=== PATIENT | male | born 1940 | race Caucasian/White ===

== ENCOUNTER 2017-01-31 08:26 | Inpatient (IN) ==
[2017-01-31 09:29] LABS: BASO% 0.2 % (0.0-0.8); EOS# 0.01 X1000 (0.0-0.7); EOS% 0.1 % (0.0-10.0); HEMATOCRIT 40.5 % (42.0-52.0); HEMOGLOBIN 13.1 g/dL (14.0-18.0); IMM GRAN# 0.11 X1000 (0.0-0.04); IMM GRAN% 0.7 % (0.0-0.5); LYMPH# 0.34 X1000 (1.2-3.4); LYMPH% 2.2 % (20.5-51.1); MANUAL DIFF NEEDED? NO; MCH 29.7 PG (27-31); MCHC 32.3 g/dL (33-37); MCV 91.8 FL (81-99); MONO# 0.94 X1000 (0.11-0.59); MONO% 6.1 % (1.7-9.3); MPV 9.4 FL (7.4-10.4); NEUT% 90.7 % (42.2-75.2); PLT 152 X1000 (130-400); RBC 4.41 XMIL (4.7-6.1)
[2017-01-31 09:48] LABS: AGAP 15; ALBUMIN 3.7 g/dL (3.5-5.0); ALKALINE PHOSPHATASE 138 U/L (32-122); BUN 14 mg/dL (8-22); CALCIUM 9.1 mg/dL (8.8-10.2); CHLORIDE 95 mmol/L (98-107); COSMO 285; GOT 29 U/L (10-34); GPT 28 U/L (10-44); POTASSIUM 4.3 mmol/L (3.5-5.1); SODIUM 137 mmol/L (136-145); TCO2 27 mmol/L (25-35); TOTAL BILIRUBIN 0.72 mg/dL (0.20-1.00); TOTAL PROTEIN 6.7 g/dL (6.3-8.3)
--- NOTE | 2017-01-31 09:59 | Diag Imaging Result Doc PS360 ---
XRAY PELVIS W/HIP 2-3VW RT - 01/31/2017 INDICATION: fall TECHNIQUE: Three views COMPARISON: None FINDINGS: There is severe protrusio acetabuli of the right acetabulum, with erosion of the iliopectineal line. The acetabulum on the left side is normal. Otherwise, no fracture or dislocation. No significant osteophyte formation. The bones are not particularly osteopenic. 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 Electronically signed by Ivan Krause 01/31/2017 9:56 AM
--- NOTE | 2017-01-31 10:28 | Diag Imaging Result Doc PS360 ---
EXAM: CHEST-1 VIEW HISTORY: POSS FX HIP TECHNIQUE: Single view COMPARISON: 07/25/2016 FINDINGS: There is cardiomegaly. No infiltrates or effusions are appreciated. IMPRESSION: Cardiomegaly. No acute cardiopulmonary abnormality is identified. Electronically signed by Dora Pa 01/31/2017 10:26 AM
--- NOTE | 2017-01-31 10:46 | PROVIDER DOCUMENTATION ---
This chart was entered by Paul Mojica Scribe, acting as scribe for Sabas Morley MD. HPI-Musculoskeletal Pain/Inj - GENERAL Chief Complaint: Fall Stated Complaint: FALL Time Seen by Provider: 01/31/17 08:55 Source: patient - HX OF PRESENT ILLNESS-MUSKULOSKELTAL Nature of Presenting Problem: patient is a 76 y/o M that presents to the ER with right hip pain secondary to a fall. patient reports about 0 last night slipping in the kitchen as he attempted to catch something that slipped out of his hands. He remained on the floor until found this am, although his found earlier but he wouldn't allow her to call 911. patient denies striking head or having loc. Nor any neck or back pain Quality of Pain: reports: aching, dull Severity in ED: moderate Onset/Duration: abrupt, last night (2199) Timing: still present, constant Modifying Factors: worse with: movement Any recent injury?: No Locality of Occurance: Home Similar Symptoms Previously?: No Recently seen or treated by another doctor?: No - FALL INJURY Location of Pain/Injury: reports: lower extremity (right hip) Reason for Fall: reports: tripped Symptoms prior to fall:: reports: none Loss of Consciousness: no loss of consciousness Injury Associated Symptoms: reports: joint pain, unable to bear weight, trouble walking. denies: back/neck pain, headaches - HIP/PELVIS PAIN/INJURY Hip Pain Location: reports: hip (R) Pain Radiation: reports: no radiation Context / Method of Injury: reports: fall Associated Symptoms: reports: denies symptoms Review of Systems - Adult - REVIEW OF SYSTEMS - ADULT Constitutional: reports: no symptoms reported Eyes: reports: no symptoms reported Ears, Nose, Mouth & Throat: denies: epistaxis, mouth/dental pain, mouth swelling Cardiovascular: denies: chest pain, palpitations Respiratory: denies: hemoptysis, shortness of breath Gastrointestinal: denies: abdominal pain, nausea, vomiting Genitourinary: reports: no symptoms reported Musculoskeletal: reports: joint pain. denies: back pain, neck pain Integumentary: reports: no symptoms reported Neurological: denies: dizziness/vertigo, headache/migraines, syncope Psychiatric: reports: no symptoms reported Endocrine: reports: no symptoms reported Hematologic/Lymphatic: reports: no symptoms reported Allergic/Immunologic: reports: no symptoms reported All Other Systems: Reviewed and Negative Past History - Adult - PAST MEDICAL HISTORY-ADULT Review of Records: reports: Old Records Reviewed, Nursing Assessment Review, Medications Reviewed Neurological: reports: TIA Endocrine/Immune: reports: Diabetes - PRIOR SURGERIES/PROCEDURES Surgical/Procedure History: reports: reviewed, not pertinent - IMMUNIZATION STATUS Childhood Immunizations: See Nurse Assessment Flu Vaccine: See Nurse Assessment - FAMILY HISTORY Family History: reviewed, not pertinent - SOCIAL HISTORY Smoking: non-smoker Alcohol Use Frequency: never Living Situation: family Physical Exam-Injury Related - Physical Exam-Injury Related Initial Vital Signs Reviewed: Yes General Appearance: alert, mild distress Eyes: PERRL/EOMI, pink conjunctivae Head, Ears, Nose, Mouth & Throat: normocephalic/atraumatic, moist mucous membranes, normal ENT inspection Neck: non-tender, full range of motion, normal inspection Respiratory: lungs clear, normal breath sounds, no respiratory distress, no accessory muscle use Cardiovascular: regular rate, rhythm, no edema, no murmur Abdominal Exam: normal bowel sounds, non tender, soft, no organomegaly, no pulsatile mass Back Exam: no CVA tenderness, no vertebral tenderness Extremity: normal capillary refill, tenderness (right hip). negative: deformity , joint effusion Integumentary: normal color, warm/dry Neurologic: chief wellness officer II-XII nml as tested, no motor/sensory deficits Psych/Mental Status: normal mood/affect, normal thought content, normal thought process, oriented x 3 - Glascow Coma Score Best Eye Response ([place]): (4) open spontaneously Best Verbal Response ([place]): (5) oriented Best Motor Response ([place]): (6) obeys commands [place] Total: 15 Progress - PLAN OF CARE/RESULTS Progress/Plan/Lab Results: Vital Signs - 8 hr 01/31/17 08:36 01/31/17 10:00 Temperature 99.6 F Pulse Rate 73 70 Respiratory Rate 19 16 Blood Pressure 149/70 142/76 O2 Sat by Pulse Oximetry 92 L 94 L Laboratory Results - last 24 hr 01/31/17 01/31/17 01/31/17 08:39 08:39 08:39 WBC 15.41 H RBC 4.41 L Hgb 13.1 L Hct 40.5 L MCV 91.8 MCH 29.7 MCHC 32.3 L RDW Std Deviation 13.6 Plt Count 152 MPV 9.4 Immature Gran % (Auto) 0.7 H Neut % (Auto) 90.7 H Lymph % (Auto) 2.2 L [place] % (Auto) 6.1 Eos % (Auto) 0.1 Baso % (Auto) 0.2 Immature Gran # (Auto) 0.11 H Neut # (Auto) 13.98 H Lymph # (Auto) 0.34 L [place] # (Auto) 0.94 H Eos # (Auto) 0.01 Baso # (Auto) 0.03 Sodium 137 Potassium 4.3 Chloride 95 L Carbon Dioxide 27 Anion Gap 15 BUN 14 Creatinine 1.1 Estimated GFR/1.73 m2 > 60 BUN/Creatinine Ratio 13 Glucose 292 H POC Glucose 288 H D Calculated Osmolality 285 Calcium 9.1 Total Bilirubin 0.72 AST 29 ALT 28 Alkaline Phosphatase 138 H Total Protein 6.7 Albumin 3.7 Globulin 3.0 Albumin/Globulin Ratio 1.2 Orders Category Date Time Status CHEST-1 VIEW [RAD] Stat Exams 01/31/17 09:46 Completed XRAY PELVIS W/HIP 2-3VW RT [RAD] Stat Exams 01/31/17 09:12 Completed BLOOD CULTURE [BLDCUL] Stat Lab 01/31/17 10:40 Uncollected CBC WITH ELECTRONIC DIFF [HEME] Stat Lab 01/31/17 08:39 Completed COMPREHENSIVE METABOLIC PANEL [CHEM] Stat Lab 01/31/17 08:39 Completed URINALYSIS W/POSS RFLX CULT-1 [URINALYSIS] Stat Lab 01/31/17 10:39 Uncollected xray of hip and pelvis right hip report report : severe chronic protrusio acetabuli of R acetabulum with erosion of the iliopectineal portion of medial acetabular wall Result Diagrams: 01/31/17 08:39 01/31/17 08:39 - XRAY 1 XRAY Study: Chest Impression: Abnormal XRAY Interpretation: CMG 2 XRAY: Right XRAY Study: Pelvis, Hip Impression: Abnormal XRAY Interpretation: see progress note for complete report - CONSULTS/PCP/HOSPITALIST Notification #1 *Consult/PCP/Hospitalist*: Sakshi RAO with Hospitalist Time Discussed: 10:38 Consult Disposition: Admit Departure - Departure Date of Disposition Decision: 01/31/17 Time of Disposition Decision: 10:38 DIAGNOSIS: Fever, Hip pain, right, Intractable pain, Unable to ambulate Disposition: ADMITTED INPATIENT 09 Certified Medical Emergency: Emergent Condition: Stable Referrals and Follow-Ups: Gabo Gunderson MD [Primary Care Provider] - - Critical Care Note This patient required my direct & personal management of CC.: No Attestation - Physician/ CARRIE Attestation The physician spent face to face time with patient:: Yes Advanced Practice Provider documentation review:: Supervising physician onsite and consulted in the evaluation and care of this patient. The physician did have a face to face encounter with the patient. This chart was documented by the indicated scribe, (Paul Mojica, Scribe) and accurately reflects the services I performed and decisions made by me, Sabas Morley MD, as attested by the provider's signature.
--- NOTE | 2017-01-31 14:08 | HISTORY AND PHYSICAL ---
PRIMARY CARE PROVIDER: Dr. Gabo Gunderson. CHIEF COMPLAINT: Fall. HISTORY OF PRESENT ILLNESS: Mr. Carter Motta Jr. is a 76-year-old male with a medical history of diabetes mellitus type 2, Crohn's, vitamin D deficiency, stroke 4 or 5 years ago, hypertension, iron deficiency anemia, who is not a great historian but daughter was at the bedside during questioning. Apparently he lives with his who has disabilities. He was attempting to get up and grab something, twisted, had socks on, legs slid out from under, and he fell on his right hip and his right hand. There is no bruising along the right hip. There is bruising in the hand but he has no difficulties with moving it. No difficulties with moving his legs. Imaging of the hip shows chronic changes that he has been seeing Dr. Ricardo Mello for. Patient states that he needs a replacement but has essentially just been waiting as long as possible. 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 He did have an elevated white blood cell count of 15,000 with a low-grade fever of 99.6. His chest x-ray was clear. Blood cultures have been obtained and a urinalysis is not available, so there is a good possibility he could have a urinary tract infection. Will transfer to [place]. PAST MEDICAL HISTORY: Diabetes mellitus type 2, Crohn's, vitamin D deficiency, stroke 4 or 5 years ago with no deficiencies, hypertension, iron deficiency anemia. PAST SURGICAL HISTORY: Right leg ankle surgery about 3 years ago. Appears healed with good range of motion. A TURP 2 years ago. SOCIAL HISTORY: Lives with his who is disabled. Denies smoking or alcohol. FAMILY HISTORY: Father of a stroke. REVIEW OF SYSTEMS: Fourteen point review of systems were complete and all were negative except for those mentioned in the above HPI. ALLERGIES: No known drug allergies. HOME MEDICATIONS: Bupropion HCL 300 mg p.o. daily, Plavix 75 mg p.o. daily, Colace 100 mg p.o. twice daily, Lasix 20 mg p.o. daily, glimepiride 2 mg p.o. daily Cook 1 tab p.o. every 6 hours p.r.n., insulin 30 units subcutaneously 5 times daily, insulin glargine 20 subcutaneously nightly, Icar C 1 tablet p.o. daily, mesalamine extended release 375 mg p.o. daily and then 500 mg p.o. twice daily, Toprol 50 mg p.o. daily, multivitamin with iron 1 tablet p.o. daily , Paxil 20 mg p.o. daily, Januvia 50 mg p.o. daily. PHYSICAL EXAMINATION: VITAL SIGNS: Temperature is 99.6 degrees, heart rate 67, respiratory rate 22, blood pressure 130/82, O2 saturation 93% on room air. He is 5 feet 10 inches, 250 pounds, BMI 35.9. GENERAL: Mr. Carter Motta Jr. is a 76-year-old male. He is in no acute distress. He is able to answer questions appropriately. HEENT: Atraumatic, normocephalic. Pupils equal, round, reactive to light. Extraocular movements intact. Mucous membranes are dry. NECK: No JVD or carotid bruits noted. CARDIOVASCULAR: S1, S2. Regular rate and rhythm. No rubs, gallops, murmurs. PULMONARY: Clear to auscultation. Bilateral breath sounds. No accessory muscle use or work of breathing noted. GI: Soft, nontender, nondistended. Positive bowel sounds x4. EXTREMITIES: Right hip tenderness. He has 3.5 to 4/5 strength in the lower extremities with 4/5 in the upper extremities. He does have +1 lower extremity edema, +2 dorsalis pedal pulses, and +2 radial pulses. SKIN: Warm, dry, intact. There is bruising along the right hand. NEUROLOGIC: Oriented to name, place, and year, although does tend to have some poor recall of his medical history. LABORATORY DATA: White blood cells 15,000, hemoglobin 13, hematocrit 40, platelet count 152,000. Sodium 137, potassium 4.3, BUN 14, creatinine is 1.1, glucose 292, calcium 9.1, bilirubin 0.72, AST 29, ALT 28. Urinalysis pending. 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 No fracture. No dislocation. Chest x-ray: Cardiomegaly. No acute pulmonary abnormalities. ASSESSMENT AND PLAN: 1. Recent fall secondary to losing balance, now with right hip pain. 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 Will do pain medicines as needed. Will start physical therapy. May need rehab to improve strength prior to discharge. Patient has been seen by Dr. Ricardo Mello about his hip and eventually will need a hip replacement, although patient has been trying to wait as long as possible to avoid one. 2. Leukocytosis with mild fever blood cultures pending. Urinalysis pending, likely with urinary tract infection. Chest x-ray was clear. Once verified will initiate antibiotic therapy. 3. Crohn disease. Continue home medications. 4. Diabetes mellitus. We will do pattern blood glucoses and sliding scale insulin. 5. Iron-deficiency anemia. Continue iron supplementation. 6. Hypertension. Continue home medications. 7. History of stroke 4 or 5 years ago without residuals. Will continue to monitor. 8. Deep venous thrombosis prophylaxis. He will be continued on his Plavix. Dictated by JALEN Linda for Melanie Lovell MD cc: JALEN Linda MD Kirk L. Jackson, MD I have personally performed a face to face diagnostic evaluation on this patient. I have reviewed and agree with the care plan. The patient reports that he fell on his right hip today and is now having severe pain. On exam the patient complains of pain with movement of his right leg. An xray of the right hip and pelvis shows no evidence of fracture. Will start the patient on prn pain medication and monitor the patient closely. The patient has a leukocytosis and a UA is currently pending. MTDD
[2017-01-31] MEDS ORDERED: NS 1,000 ML IV SCH ×2 (14:22→18:00)
[2017-01-31] MEDS ORDERED: ZOFRAN IV PRN ×2 (14:22→18:03)
[2017-01-31] MEDS ORDERED: NORCO-5 PO PRN (14:22)
[2017-01-31] MEDS ORDERED: TYLENOL PO PRN ×2 (14:22→18:02)
[2017-01-31] MEDS ORDERED: HUMULIN R SUBQ SCH (14:22)
[2017-01-31 14:40] LABS: URINE CULTURE NEEDED? NO; URINE MICRO REVIEW NEEDED? NO; URINE SOURCE CLEAN CATCH
[2017-01-31 14:43] LABS: BILIRUBIN URINE NEGATIVE (NEGATIVE); BLOOD URINE NEGATIVE (NEGATIVE); COLOR YELLOW; GLUCOSE URINE 300 mg/dL (NEGATIVE); LEUKOCYTES URINE NEGATIVE (NEGATIVE); NITRITE URINE NEGATIVE (NEGATIVE); PH URINE 5.5; PROTEIN URINE NEGATIVE (NEGATIVE); SP GRAVITY URINE 1.016; TURBIDITY URINE CLEAR (CLEAR); UROBILINOGEN URINE NORMAL (NORMAL)
[2017-01-31 14:44] LABS: UR EPITHELIAL CELLS <10 /HPF (<10); URINE BACTERIA NEGATIVE /HPF; URINE RBC <10 /HPF (<10); URINE WBC <10 /HPF (<10)
[2017-01-31] MEDS ORDERED: INSULIN PEN NEEDLES ONE (16:51)
[2017-01-31] MEDS: NORCO-5 PO PRN (20:40)
[2017-01-31] MEDS: COLACE PO SCH (20:40)
[2017-01-31] MEDS: LOPRESSOR PO SCH (20:40)
[2017-01-31] MEDS: HUMULIN R (PARKWAY) SUBQ SCH (20:48)
[2017-01-31] MEDS ORDERED: TOUJEO SOLOSTAR SUBQ SCH ×2 (21:00)
[2017-01-31] MEDS ORDERED: LOPRESSOR PO SCH (21:00)
[2017-01-31] MEDS ORDERED: COLACE PO SCH (21:00)
--- NOTE | 2017-01-31 21:18 | Diag Imaging Result Doc PS360 ---
EXAM: CT PELVIS W/O CONTRAST INDICATION: fall on right hip TECHNIQUE: COMPARISON: None. FINDINGS: There is an acute comminuted fracture of the acetabulum on the right multiple fracture lines traverse the acetabulum. Fracture lines involve the anterior, posterior, superior, and inferior camarena of the acetabulum. There are medially displaced fracture fragments. There is medial displacement of the femoral head. There are also a couple nondisplaced fractures involving the inferior pubic ramus on the right. There is soft tissue edema and hematoma surrounding the right hip. The urinary bladder is distended. There is uncomplicated diverticulosis coli. IMPRESSION: 1.Acute comminuted fracture involving the acetabulum on the right with medially displaced acetabular fracture fragments and resulting medial displacement of the right femoral head. 2.Nondisplaced fractures involving the inferior right pubic ramus. Electronically signed by Benjamin Brewer 01/31/2017 9:15 PM
[2017-02-01] MEDS: NORCO-5 PO PRN ×2 (03:45→16:43)
[2017-02-01 06:08] LABS: MANUAL DIFF NEEDED? NO
[2017-02-01] MEDS: HUMULIN R (PARKWAY) SUBQ SCH ×3 (06:22→16:44)
[2017-02-01 06:29] LABS: BASO% 0.2 % (0.0-0.8); EOS# 0.18 X1000 (0.0-0.7); EOS% 1.5 % (0.0-10.0); HEMATOCRIT 34.8 % (42.0-52.0); HEMOGLOBIN 11.1 g/dL (14.0-18.0); IMM GRAN# 0.13 X1000 (0.0-0.04); LYMPH# 0.47 X1000 (1.2-3.4); LYMPH% 3.8 % (20.5-51.1); MCH 29.1 PG (27-31); MCHC 31.9 g/dL (33-37); MCV 91.3 FL (81-99); MONO# 1.24 X1000 (0.11-0.59); NEUT% 83.5 % (42.2-75.2); PLT 138 X1000 (130-400); RBC 3.81 XMIL (4.7-6.1)
[2017-02-01 06:38] LABS: ALBUMIN 3.3 g/dL (3.5-5.0)
[2017-02-01 06:39] LABS: AGAP 10; ALKALINE PHOSPHATASE 117 U/L (32-122); BUN 13 mg/dL (8-22); CALCIUM 8.5 mg/dL (8.8-10.2); CHLORIDE 99 mmol/L (98-107); COSMO 278; GOT 18 U/L (10-34); GPT 21 U/L (10-44); MAGNESIUM 1.8 mg/dL (1.5-2.7); POTASSIUM 3.4 mmol/L (3.5-5.1); SODIUM 135 mmol/L (136-145); TCO2 26 mmol/L (25-35); TOTAL PROTEIN 6.3 g/dL (6.3-8.3)
[2017-02-01 07:28] LABS: INR 0.99 (0.86-1.15); PROTIME 13.9 Seconds (12.1-15.5)
[2017-02-01 07:29] LABS: PTT PL 31.5 Seconds (22.6-43.9)
--- NOTE | 2017-02-01 07:59 | EKG Report ---
Test Performed on : 02/01/2017 07:48:55 AM Test Reason : chest pain Blood Pressure : / mmHG Vent. Rate : 070 BPM Atrial Rate : 070 BPM P-R Int : 134 ms QRS Dur : 088 ms QT Int : 410 ms P-R-T Axes : 000 005 014 degrees QTc Int : 442 ms Normal sinus rhythm. Normal ECG When compared with ECG of 25-JUL-2016 16:21, Nonspecific T wave abnormality no longer evident in Lateral leads Confirmed by Suresh Ashby MD ([id number]) on 02/07/2017 6:49:21 PM
[2017-02-01] MEDS ORDERED: LOVENOX SUBQ SCH ×2 (08:00)
[2017-02-01] MEDS ORDERED: PAXIL PO SCH ×2 (09:00)
[2017-02-01] MEDS ORDERED: PLAVIX PO SCH ×2 (09:00)
[2017-02-01] MEDS ORDERED: PRILOSEC PO SCH ×2 (09:00)
[2017-02-01] MEDS ORDERED: WELLBUTRIN XL PO SCH ×2 (09:00)
[2017-02-01] MEDS ORDERED: AMARYL PO SCH ×2 (09:00)
[2017-02-01] MEDS ORDERED: TOUJEO SOLOSTAR SUBQ SCH ×2 (09:00)
[2017-02-01] MEDS ORDERED: ICAR-C PO SCH ×2 (09:00)
[2017-02-01] MEDS ORDERED: LASIX PO SCH ×2 (09:00)
[2017-02-01] MEDS ORDERED: THERA M PLUS PO SCH ×2 (09:00)
[2017-02-01] MEDS ORDERED: DELZICOL PO SCH ×2 (09:00)
[2017-02-01] MEDS ORDERED: INSULIN PEN NEEDLES ONE (10:03)
[2017-02-01] MEDS: COLACE PO SCH (10:27)
[2017-02-01] MEDS: LOPRESSOR PO SCH (10:27)
[2017-02-01 16:23] VITALS: BP 147/73
--- NOTE | 2017-03-01 18:04 | DISCHARGE SUMMARY ---
ADMISSION DATE: 01/31/2017 DISCHARGE DATE: 02/01/2017 DISCHARGE DIAGNOSES: 1. Recent fall. 2. Ataxia. 3. Right hip pain. 4. Leukocytosis. 5. Crohn's disease. 6. Diabetes mellitus. 7. Iron deficiency anemia. HOSPITAL COURSE: He was admitted and seen by Dr. Lovell and then sent over to [place] for further management. When I saw the patient, he had persistent hip pain so we went ahead and did a pelvic CT which showed an acute comminuted fracture within the acetabulum of the right hip with medially displaced acetabular fracture and nondisplaced fractures of the inferior pubic ramus. We discussed the case with Orthopedics in [place] and patient ended up being transferred for right hip surgery. We did discuss the case with Dr. Menezes who felt that this could not be managed locally and will need to be handled in [place]. DISCHARGE CONDITION: Stable. DISCHARGE INSTRUCTIONS: Further care per Orthopedic service in [place]. TOTAL TIME SPENT ON DISCHARGE: 32 minutes. cc: MD Gabo Salgado MD
== END 2017-02-01 19:50 | disposition short-term general hospital (02) ==
LOC: ED 08:26 → SUATTDRO 11:39 → EDIPHOLD 11:39 → 4N 14:45 → P.MEDSURG 17:26
PROVIDERS: ATTEND Internal Medicine